=== PATIENT | female | born 1995 | race Caucasian/White ===

== ENCOUNTER 2019-12-15 10:48 | Outpatient (CLI) | payer OTHER ==
--- NOTE | 2019-12-15 14:31 | ULT ---
RIGHT BREAST ULTRASOUND: 12/15/19 INDICATION: New palpable abnormality in the right breast. COMPARISON: None. FINDINGS: No suspicious sonographic abnormality is seen within the right breast 5 o'clock position, right [address] 6 o'clock position, right breast 7 o'clock, and right breast 8 o'clock position, right breast 9 o' clock position, right breast 10 o'clock position and right breast 11 o'clock position. IMPRESSION: No suspicious sonographic abnormality seen within the palpable regions of interest in the right breas t. Patient does report a maternal history of premenopausal breast cancer requiring double mastectomy. Louie nina reports that her mother was in her late 30s at the time of the diagnosis. Would recommend a scr eening mammographic evaluation of the right and left breast approximately eight years prior to the ag e in which the patient's mother received the diagnosis of breast cancer. Also there should be conside ration for screening breast MRI examination at this time. The patient was also instructed to perform monthly self breast examinations. [facility]. Patient verbalized understanding. We will refer this patient back to the ordering clinician. Negative imaging should never deter biopsy of find ings on clinical examination are suspicious. POS: [id number]
== END 2019-12-15 10:49 | disposition home or self-care (01) ==
LOC: BICULT 10:48
PROVIDERS: ATTEND Obstetrics & Gynecology
DX: N63.10 Unspecified lump in the right breast, unspecified quadrant (principal); Z85.3 Personal history of malignant neoplasm of breast